=== PATIENT | male | born 1970 | race Caucasian/White ===

== ENCOUNTER 2020-11-15 13:48 | Emergency (ER) | payer OTHER ==
[2020-11-15] MEDS ORDERED: diphenhydrAMINE 50 MG/ML SDV IVPUSH ONE (13:54)
[2020-11-15] MEDS ORDERED: EPINEPHrine 1 MG/1 ML Amp IM ONE (13:54)
[2020-11-15] MEDS ORDERED: Dexamethasone 10 MG/ML SDV IVPUSH ONE (13:54)
[2020-11-15] MEDS ORDERED: Albuterol/Ipratropium 3.0-0.5 MG/3 ML Neb Soln NEB ONE (13:55)
--- NOTE | 2020-11-15 13:56 | EDM.PDOC ---
ED HPI GENERAL MEDICAL PROBLEM - General Stated Complaint: ALLERGIC REACTION Time Seen by Provider: 11/15/20 13:48 - History of Present Illness INITIAL COMMENTS - FREE TEXT/NARRATIVE: History of present illness: [] This patient is experienced a previous allergic reaction it was anaphylaxis is now having the same symptoms. He short of breath having trouble breathing wheezing. It happened about 1 hour ago. He does not know of any acute exposure. He was doing well this morning. He does have a history of COPD. He has had prior anaphylaxis wants to wasp sting and wants for unknown reason. Today he ate menudo for the first time in the long time and thinks that might have been the precipitating factor. Before 1 hour prior to arrival he was feeling fine and yesterday he was feeling fine. Review of systems: As per history of present illness and below otherwise all systems reviewed and negative. Past medical history: As per history of present illness and as reviewed below otherwise noncontributory. Surgical history: As per history of present illness and as reviewed below otherwise noncontributory. Social history: No reported history of drug or alcohol abuse. Family history: As per history of present illness and as reviewed below otherwise noncontributory. Physical exam: Constitutional - well developed, well-nourished and in no acute distress HEENT - normocephalic, no evidence of trauma - external nose and mouth normal - no mass in neck and no JVD - mucosae moist EYES - full EOM, PERRL, no icterus - no evidence of inflammation, injection, or drainage Respiratory -mild respiratory distress, equal bilateral expansion, lungs diminished breath sounds and scattered wheeze with prolonged expiratory phase of expiration. Cardiovascular - Regular Rhythm with S1 and S2 appreciated and no murmur, gallop or rub. GI - abdomen soft without distension or organomegaly - normal bowel sounds - no guard or rebound Musculoskeletal no gross deformity of long bones or joints - no tenderness, swelling or edema Neurologic - Alert and oriented times four - CN II-XII grossly intact - motor sensory and coordination symmetrically normal Psychiatric - appropriate mood and affect with normal thought content Hematologic - No petechiae or purpura - mucosa appropriate color and sclera not pale - normal nail bed color and refill Integument - no rash or evidence of trauma - normal turgor Diagnostics: [] Therapeutics: [] Impression: [] Plan: [] Definitive disposition and diagnosis as appropriate pending reevaluation and review of above. - Related Data Allergies Allergy/AdvReac Type Severity Reaction Status Date / Time bee venom protein (honey bee) Allergy Anaphylactic Verified 11/15/20 14:15 Shock Home Meds: Home Meds methylPREDNISolone [Medrol Dose Pack] 4 mg PO DAILY #21 tab 11/15/20 [Rx] ED ROS GENERAL - Review of Systems Review Of Systems: Comprehensive ROS is negative, except as noted in HPI. ED EXAM, GENERAL - Physical Exam Exam: See Below Free Text/Narrative:: My physical exam is in the HPI Course - Vital Signs Text/Narrative:: 1405 hrs. the patient's breathing better. His voice is normal. He feels better. 1552 hrs. the patient remains improved. Last Recorded V/S: Last Vital Signs Temp 37.0 C 11/15/20 14:16 Pulse 94 11/15/20 15:31 Resp 16 11/15/20 15:31 BP 120/79 11/15/20 15:31 Pulse Ox 99 11/15/20 15:31 - Orders/Labs/Meds Orders: Active Orders 24 hr Category Date Time Status RT Aerosol Therapy [RC] ASDIRECTED Care 11/15/20 13:55 Active Meds: Medications Discontinued Medications Generic Name Dose Route Start Last Admin Trade Name Deya PRN Reason Stop Dose Admin Albuterol/Ipratropium 3 ml 11/15/20 13:55 11/15/20 14:14 Albuterol/Ipratropium 3.0-0.5 Mg/3 Ml Neb Soln NEB 11/15/20 13:56 3 ml ONETIME ONE Administration Dexamethasone 10 mg 11/15/20 13:54 11/15/20 14:10 Dexamethasone 10 Mg/Ml Sdv IVPUSH 11/15/20 13:55 10 mg ONETIME ONE Administration Diphenhydramine HCl 25 mg 11/15/20 13:54 11/15/20 14:09 Diphenhydramine 50 Mg/Ml Sdv IVPUSH 11/15/20 13:55 25 mg ONETIME ONE Administration Epinephrine HCl 0.3 mg 11/15/20 13:54 11/15/20 14:09 Epinephrine 1 Mg/1 Ml Amp IM 11/15/20 13:55 0.3 mg ONETIME ONE Administration Departure - Departure Time of Disposition: 15:52 Disposition: Home, Self-Care 01 Condition: Good Clinical Impression: Anaphylaxis - Discharge Information Prescriptions: methylPREDNISolone [Medrol Dose Pack] 4 mg PO DAILY #21 tab Instructions: Anaphylactic Reaction, Adult Referrals: PCP,Not In Area [Primary Care Provider] - Additional Instructions: Take Benadryl 3 times a day for the next 3 days. Fill the prescription for steroids. You should carry an autoinjector. These are expensive and if you look up epinephrine affordable on the web search you can find organizations to try to help people who need them afford them so they can carry them for their own safety [facility] [address] [place] [id number] [id number] The following information is given to patients seen in the emergency department who are being discharged to home. This information is to outline your options for follow-up care. We provide all patients seen in our emergency department with a follow-up referral. The need for follow-up, as well as the timing and circumstances, are variable depending upon the specifics of your emergency department visit. If you don't have a primary care physician on staff, we will provide you with a referral. We always advise you to contact your personal physician following an emergency department visit to inform them of the circumstance of the visit and for follow-up with them and/or the need for any referrals to a consulting specialist. The emergency department will also refer you to a specialist when appropriate. This referral assures that you have the opportunity for follow-up care with a specialist. All of these measure are taken in an effort to provide you with optimal care, which includes your follow-up. Under all circumstances we always encourage you to contact your private physician who remains a resource for coordinating your care. When calling for follow-up care, please make the office aware that this follow-up is from your recent emergency room visit. If for any reason you are refused follow-up, please contact the [facility] Department at and asked to speak to the emergency department charge nurse. Sepsis Event Note (ED) - Focused Exam Vital Signs: Vital Signs Temp Pulse Resp BP Pulse Ox 11/15/20 15:31 94 16 120/79 99 11/15/20 14:16 37.0 C 98 17 120/79 99 11/15/20 14:15 97 18 109/76 95 - My Orders Last 24 Hours: My Active Orders 11/15/20 13:55 RT Aerosol Therapy [RC] ASDIRECTED - Assessment/Plan Last 24 Hours: My Active Orders 11/15/20 13:55 RT Aerosol Therapy [RC] ASDIRECTED
== END 2020-11-15 16:25 | disposition home or self-care (01) ==
LOC: EDBD 13:48 → MW.ED 13:48
DX: T78.2XXA Anaphylactic shock, unspecified, initial encounter (principal)
CPT/HCPCS: 96372; 96374; 96375; 99284; J0171; J1100; J1200; J7620-GY

== ENCOUNTER 2021-02-10 10:20 | Emergency (ER) | payer SELFPAY ==
[2021-02-10] MEDS ORDERED: Sodium Chloride 0.9% 10 ML Syringe FLUSH PRN (10:29)
[2021-02-10] MEDS ORDERED: Sodium Chloride 0.9% 2.5 ML Syringe FLUSH PRN (10:29)
[2021-02-10] MEDS ORDERED: Albuterol/Ipratropium 3.0-0.5 MG/3 ML Neb Soln NEB ONE (10:30)
[2021-02-10] MEDS ORDERED: methylPREDNISolone Sodium Succinate 125 MG/2 ML SDV IVPUSH ONE (10:31)
[2021-02-10] MEDS ORDERED: Ondansetron 4 MG/2 ML SDV IVPUSH ONE (10:39)
[2021-02-10 11:16] LABS: BLOOD UREA NITROGEN,BUN 21 mg/dL (7.0-18.0); CARBON DIOXIDE,CO2 24.2 mmol/L (21.0-32.0); CHLORIDE,CL 104 mmol/L (98-107); GLUCOSE RANDOM 122 mg/dL (74-106); POTASSIUM,K 4.5 mmol/L (3.5-5.1); SODIUM,NA 141 mmol/L (136-148)
--- NOTE | 2021-02-10 11:19 | CR ---
INDICATION: COPD with difficulty in breathing COMPARISON: None TECHNIQUE: PA and lateral views of the chest were acquired FINDINGS: TUBES AND LINES: None. HEART AND MEDIASTINUM: The heart size is normal. The mediastinal contour appears normal for patient age. LUNGS AND PLEURAL SPACES: Hyperinflated but otherwise unremarkable appearing lungs without acute focal finding.The pleural spaces are unremarkable. OSSEOUS STRUCTURES: Age-appropriate appearance. No acute focal finding. IMPRESSION: Hyperinflated but otherwise unremarkable appearing lungs. No acute focal finding. Dictated by Dennis Timmons MD @ 02/10/2021 11:17:22 AM (Electronically Signed)
[2021-02-10] MEDS ORDERED: Sodium Chloride 0.9% 1,000 ML IV ONE (11:59)
--- NOTE | 2021-02-10 13:07 | EDM.PDOC ---
ED HPI GENERAL MEDICAL PROBLEM - General Chief Complaint: Respiratory Problem Stated Complaint: SOB Time Seen by Provider: 02/10/21 10:26 Source of Information: Reports: Patient History Limitations: Reports: No Limitations - History of Present Illness INITIAL COMMENTS - FREE TEXT/NARRATIVE: HISTORY AND PHYSICAL: History of present illness: Patient is a 50-year-old male with a history of COPD and methamphetamine use, who presents emergency room today with concern of worsening shortness of breath x2 days. Patient states that he has had multiple COPD exacerbations and this fe els typical of his usual COPD exacerbation. Patient states that he no longer has his albuterol or medications and states that he does not have any more refills on them. Patient states that he is currently high on methamphetamine and states he does realize that this is why he is anxious and agitated and states that he does use it chronically. Patient denies fever, chills, chest pain, or cough. Denies headache, neck stiff ness, change in vision, syncope, or near syncope. Denies nausea, vomiting, abdominal pain, diarrhea, constipation, or dysuria. Has not noted any blood in urine or stool. Patient has been eating and drinking appropriately. Review of systems: As per history of present illness and below otherwise all systems reviewed and negative. Past medical history: As per history of present illness and as reviewed below otherwise noncontributory. Surgical history: As per history of present illness and as reviewed below otherwise noncontributory. Social history: See social history for further information Family history: As per history of present illness and as reviewed below otherwise noncontributory. Physical exam: General: Patient is alert, oriented, and in no acute distress. Patient sitting on exam table. Patient is tachypneic with a respiratory rate of 30 and tachycardic at 125, otherwise vitally stable and reviewed by me. Patient is anxious and fidgety. HEENT: Atraumatic, normocephalic, pupils equal and reactive bilaterally, negative for conjunctival pallor or scleral icterus, mucous membranes moist, throat clear, neck supple, nontender, trachea midline. No drooling or trismus noted. No meningeal signs. No hot potato voice noted. Lungs: Diffuse wheezing to auscultation throughout all lung steiner, breath sounds equal bilaterally, chest nontender. Patient speaking 3-4 words with breathlessness, no stridor, some use of accessory muscle use or respiratory distress. Heart: S1S2, regular rate and rhythm without overt murmur Abdomen: Soft, nondistended, nontender. Negative for masses or hepatosplenomegaly. Negative for costovertebral tenderness. Pelvis: Stable nontender. Genitourinary: Deferred. Rectal: Deferred. Skin: Intact, warm, dry. No lesions or rashes noted. Extremities: Atraumatic, negative for cords or calf pain. Neurovascular unremarkable. Neuro: Awake, alert, oriented. Cranial nerves II through XII unremarkable. Cerebellum unremarkable. Motor and sensory unremarkable throughout. Exam nonfocal. Medical Decision Making: Patient is a 50-year-old male with a history of COPD and methamphetamine use who presents emergency room today with concern of worsening shortness of breath x2 days. Upon arrival to the ED, patient is tachypneic with a respiratory rate of 30 and tachycardic at 125, he is anxious and fidgety. He does have diffuse wheezing to auscultation throughout all lung steiner and exam is otherwise unremarkable. Upon arrival to the ED, continueous duoneb initiated with dose of steroid. Following the DuoNeb, patient was reevaluated and does have improvement of his wheezing. His respiratory rate has come down to 18, and his heart rate has improved to [address] Philippe's dictation for specific EKG interpretation. Otherwise, sinus tachycardia without STEMI. CBC does show a mild leukocytosis with white blood cell count 12.09, otherwise mild derangements of CBC are unremarkable. D-dimer is within normal limits. CMP does show elevation of BUN at 21, AST and ALT mildly elevated at 74 and 74. Troponin negative. Venous blood gas shows a normal pH at 7.45. Chest x-ray shows hyperinflation otherwise unremarkable lungs. No acute focal findings. (Patient denies Covid/influenza testing) Upon reevaluation of patient, he now remains vitally stable and comfortable throughout stay in ED. Patient has not had access to his COPD medications. So will give patient nebulizers, his albuterol inhaler, placed on a steroid pack, and azithromycin for COPD exacerbation. Strict return precautions thoroughly discussed with patient. Discussed importance for follow-up with close follow-up with a primary care provider. Voices understanding and is agreeable to plan of care. Denies any further questions or concerns at this time. Diagnostics: EKG, CBC, CMP, D-dimer, chest x-ray, troponin Therapeutics: DuoNeb x3, Solu-Medrol Prescription: Albuterol, DuoNeb, prednisone, azithromycin Impression: COPD exacerbation Plan: 1. Take medications as prescribed. Your prescription has been sent to [place] [facility]. 2. Follow-up closely with your primary care provider in the next 2 to 3 days as discussed. Return to the ED as needed and as discussed. Definitive disposition and diagnosis as appropriate pending reevaluation and review of above. - Related Data Allergies Allergy/AdvReac Type Severity Reaction Status Date / Time bee venom protein (honey bee) Allergy Anaphylactic Verified 02/10/21 10:23 Shock Home Meds: Home Meds Albuterol Sulfate [Albuterol Sulfate Hfa] 2 puff PO DAILY 02/10/21 [History] Albuterol Sulfate [Proair Hfa] 8.5 gm IH Q8HR PRN #1 hfa.[email or web address] 02/10/21 [Rx] Albuterol/Ipratropium [DuoNeb 3.0-0.5 MG/3 ML] 3 ml .XX TID PRN #1 box 02/10/21 [Rx] Azithromycin 250 mg PO DAILY 5 Days #6 tablet 02/10/21 [Rx] Fluticasone/Umeclidin/Vilanter [Trelegy Ellipta 100-62.5-25] 1 puff PO BID 02/10/21 [History] predniSONE [Prednisone] 20 mg PO DAILY 5 Days #5 tablet 02/10/21 [Rx] Past Medical History - Past Health History Medical/Surgical History: Denies Medical/Surgical History Respiratory History: Reports: COPD - Infectious Disease History Infectious Disease History: Reports: None Social & Family History - Family History Family Medical History: No Pertinent Family History - Caffeine Use Caffeine Use: Reports: Coffee - Recreational Drug Use Recreational Drug Type: Reports: Methamphetamine Recreational Drug Use Frequency: Binges ED ROS GENERAL - Review of Systems Review Of Systems: Comprehensive ROS is negative, except as noted in HPI. ED EXAM, GENERAL - Physical Exam Exam: See Below (see dictation) Course - Vital Signs Last Recorded V/S: Last Vital Signs Temp 97.9 F 02/10/21 13:21 Pulse 98 02/10/21 13:21 Resp 18 02/10/21 13:21 BP 138/73 02/10/21 13:21 Pulse Ox 94 L 02/10/21 13:21 - Orders/Labs/Meds Orders: Active Orders 24 hr Category Date Time Status Saline Lock Insert [OM.PC] Stat Oth 02/10/21 10:29 Ordered Labs: Laboratory Tests 02/10/21 02/10/21 02/10/21 Range/Units 10:30 10:30 10:30 WBC 12.09 H (4.0-11.0) K/uL RBC 5.33 (4.50-5.90) M/uL Hgb 16.7 (13.0-17.0) g/dL Hct 48.4 (38.0-50.0) % MCV 90.8 (80.0-98.0) fL MCH 31.3 (27.0-32.0) pg MCHC 34.5 (31.0-37.0) g/dL RDW Std Deviation 46.3 (28.0-62.0) fl RDW Coeff of Deanna 14 (11.0-15.0) % Plt Count 290 (150-400) K/uL MPV 9.40 (7.40-12.00) fL Neut % (Auto) 53.2 (48.0-80.0) % Lymph % (Auto) 32.1 (16.0-40.0) % [place] % (Auto) 10.9 (0.0-15.0) % Eos % (Auto) 3.6 (0.0-7.0) % Baso % (Auto) 0.2 (0.0-1.5) % Neut # (Auto) 6.4 H (1.4-5.7) K/uL Lymph # (Auto) 3.9 H (0.6-2.4) K/uL [place] # (Auto) 1.3 H (0.0-0.8) K/uL Eos # (Auto) 0.4 (0.0-0.7) K/uL Baso # (Auto) 0.0 (0.0-0.1) K/uL Nucleated RBC % 0.0 /100WBC Nucleated RBCs # 0 K/uL D-Dimer, Quantitative 0.47 (0.0-0.50) mg/L FEU VBG pH (7.31-7.41) VBG pCO2 (41-51) mmHG VBG pO2 mmHG VBG HCO3 (23-28) mEq/L VBG Total CO2 (24-29) mmol/L VBG Base Excess (-2.0-3.0) Sodium 141 (136-148) mmol/L Potassium 4.5 (3.5-5.1) mmol/L Chloride 104 (98-107) mmol/L Carbon Dioxide 24.2 (21.0-32.0) mmol/L BUN 21 H (7.0-18.0) mg/dL Creatinine 1.2 (0.8-1.3) mg/dL Est Cr Clr Drug Dosing 72.01 mL/min Estimated GFR (MDRD) > 60.0 ml/min Glucose 122 H (74-106) mg/dL Calcium 9.6 (8.5-10.1) mg/dL Total Bilirubin 0.9 (0.2-1.0) mg/dL AST 74 H (15-37) IU/L ALT 74 H (14-63) IU/L Alkaline Phosphatase 76 (46-116) U/L Troponin I < 0.050 (0.000-0.056) ng/mL Total Protein 8.0 (6.4-8.2) g/dL Albumin 4.2 (3.4-5.0) g/dL Globulin 3.8 (2.6-4.0) g/dL Albumin/Globulin Ratio 1.1 (0.9-1.6) 02/10/21 Range/Units 10:30 WBC (4.0-11.0) K/uL RBC (4.50-5.90) M/uL Hgb (13.0-17.0) g/dL Hct (38.0-50.0) % MCV (80.0-98.0) fL MCH (27.0-32.0) pg MCHC (31.0-37.0) g/dL RDW Std Deviation (28.0-62.0) fl RDW Coeff of Deanna (11.0-15.0) % Plt Count (150-400) K/uL MPV (7.40-12.00) fL Neut % (Auto) (48.0-80.0) % Lymph % (Auto) (16.0-40.0) % [place] % (Auto) (0.0-15.0) % Eos % (Auto) (0.0-7.0) % Baso % (Auto) (0.0-1.5) % Neut # (Auto) (1.4-5.7) K/uL Lymph # (Auto) (0.6-2.4) K/uL [place] # (Auto) (0.0-0.8) K/uL Eos # (Auto) (0.0-0.7) K/uL Baso # (Auto) (0.0-0.1) K/uL Nucleated RBC % /100WBC Nucleated RBCs # K/uL D-Dimer, Quantitative (0.0-0.50) mg/L FEU VBG pH 7.45 H (7.31-7.41) VBG pCO2 37 L (41-51) mmHG VBG pO2 36 mmHG VBG HCO3 26 (23-28) mEq/L VBG Total CO2 22 L (24-29) mmol/L VBG Base Excess 1.9 (-2.0-3.0) Sodium (136-148) mmol/L Potassium (3.5-5.1) mmol/L Chloride (98-107) mmol/L Carbon Dioxide (21.0-32.0) mmol/L BUN (7.0-18.0) mg/dL Creatinine (0.8-1.3) mg/dL Est Cr Clr Drug Dosing mL/min Estimated GFR (MDRD) ml/min Glucose (74-106) mg/dL Calcium (8.5-10.1) mg/dL Total Bilirubin (0.2-1.0) mg/dL AST (15-37) IU/L ALT (14-63) IU/L Alkaline Phosphatase (46-116) U/L Troponin I (0.000-0.056) ng/mL Total Protein (6.4-8.2) g/dL Albumin (3.4-5.0) g/dL Globulin (2.6-4.0) g/dL Albumin/Globulin Ratio (0.9-1.6) Meds: Medications Discontinued Medications Generic Name Dose Route Start Last Admin Trade Name Freq PRN Reason Stop Dose Admin Albuterol/Ipratropium 9 ml 02/10/21 10:30 02/10/21 10:34 Albuterol/Ipratropium 3.0-0.5 Mg/3 Ml Neb Soln NEB 02/10/21 10:31 9 ml ONETIME ONE Administration Sodium Chloride 1,000 mls @ 999 mls/hr 02/10/21 11:59 02/10/21 12:05 Normal Saline IV 02/10/21 12:59 999 mls/hr STAT ONE Administration Methylprednisolone Sodium Succinate 125 mg 02/10/21 10:31 02/10/21 10:34 Methylprednisolone Sodium Succinate 125 Mg/2 Ml Sdv IVPUSH 02/10/21 10:32 125 mg ONETIME ONE Administration Ondansetron HCl 4 mg 02/10/21 10:39 02/10/21 10:41 Ondansetron 4 Mg/2 Ml Sdv IVPUSH 02/10/21 10:40 4 mg ONETIME ONE Administration Sodium Chloride 2.5 ml 02/10/21 10:29 02/10/21 10:42 Sodium Chloride 0.9% 2.5 Ml Syringe FLUSH 2.5 ml ASDIRECTED PRN Administration Keep Vein Open Sodium Chloride 10 ml 02/10/21 10:29 02/10/21 10:42 Sodium Chloride 0.9% 10 Ml Syringe FLUSH 10 ml ASDIRECTED PRN Administration Keep Vein Open Departure - Departure Time of Disposition: 13:04 Disposition: Home, Self-Care 01 Clinical Impression: COPD exacerbation - Discharge Information Prescriptions: Azithromycin 250 mg PO DAILY 5 Days #6 tablet Albuterol/Ipratropium [DuoNeb 3.0-0.5 MG/3 ML] 3 ml .XX TID PRN #1 box PRN Reason: Wheezing predniSONE [Prednisone] 20 mg PO DAILY 5 Days #5 tablet Albuterol Sulfate [Proair Hfa] 8.5 gm IH Q8HR PRN #1 hfa.aer.ad PRN Reason: Cough Instructions: Chronic Obstructive Pulmonary Disease Exacerbation, [id number] Referrals: PCP,None [Primary Care Provider] - Forms: ED Department Discharge Additional Instructions: The following information is given to patients seen in the emergency department who are being discharged to home. This information is to outline your options for follow-up care. We provide all patients seen in our emergency department with a follow-up referral. The need for follow-up, as well as the timing and circumstances, are variable depending upon the specifics of your emergency department visit. If you don't have a primary care physician on staff, we will provide you with a referral. We always advise you to contact your personal physician following an emergency department visit to inform them of the circumstance of the visit and for follow-up with them and/or the need for any referrals to a consulting specialist. The emergency department will also refer you to a specialist when appropriate. This referral assures that you have the opportunity for follow-up care with a specialist. All of these measure are taken in an effort to provide you with optimal care, which includes your follow-up. Under all circumstances we always encourage you to contact your private physician who remains a resource for coordinating your care. When calling for follow-up care, please make the office aware that this follow-up is from your recent emergency room visit. If for any reason you are refused follow-up, please contact the [facility] at and asked to speak to the emergency department charge nurse. [facility] [address] [place] [id number] [place] [address] 1. Take medications as prescribed. Your prescription has been sent to [place] [facility]. 2. Follow-up closely with your primary care provider in the next 2 to 3 days as discussed. Return to the ED as needed and as discussed. Sepsis Event Note (ED) - Evaluation Sepsis Screening Result: Possible Sepsis Risk - Focused Exam Vital Signs: Vital Signs Temp Pulse Resp BP Pulse Ox 02/10/21 13:21 97.9 F 98 18 138/73 94 L 02/10/21 12:24 100 140/77 91 L 02/10/21 11:24 115 H 114/90 92 L 02/10/21 10:23 97.0 F 125 H 30 H 127/95 H 98 - My Orders Last 24 Hours: My Active Orders 02/10/21 10:29 Saline Lock Insert [OM.PC] Stat - Assessment/Plan Last 24 Hours: My Active Orders 02/10/21 10:29 Saline Lock Insert [OM.PC] Stat
--- NOTE | 2021-02-11 07:55 | PCM.EKG ---
#1 Interpretation EKG Date: 02/10/21 Time: 10:56 Rhythm: NSR Rate (Beats/Min): 97 Gilbert: Normal P-Wave: Present QRS: Normal ST-T: Normal QT: Normal Comparison: NA - No Prior EKG EKG Interpretation Comments: Sinus Rhythm
== END 2021-02-10 13:22 | disposition home or self-care (01) ==
LOC: MW.ED 10:20
DX: J44.1 Chronic obstructive pulmonary disease with (acute) exacerbation (principal); Z91.030 Bee allergy status
CPT/HCPCS: 36415; 71045; 80053; 82803; 84484; 85025; 85379; 93005; 94640; 96374; 96375; 99285; J2405; J2930; J7030; J7620-GY

== ENCOUNTER 2021-05-01 16:10 | Emergency (ER) | payer SELFPAY ==
[~2021-05-01 16:10] MED LIST: Ofloxacin 0.3% Ophth Soln 5 ML Bottle EYEBOTH ONE
[2021-05-01] MEDS ORDERED: diphenhydrAMINE 50 MG/ML SDV IVPUSH ONE (16:11)
[2021-05-01] MEDS ORDERED: methylPREDNISolone Sodium Succinate 125 MG/2 ML SDV IVPUSH ONE (16:11)
[2021-05-01] MEDS ORDERED: EPINEPHrine 1 MG/ML SDV IM ONE (16:13)
[2021-05-01] MEDS ORDERED: Tetracaine HCl/PF 0.5% 4 ML Bottle EYEBOTH ONE (16:14)
[2021-05-01] MEDS ORDERED: Fluorescein 1 MG Ophth Strip EYEBOTH ONE (16:15)
[2021-05-01] MEDS ORDERED: LORazepam 2 MG/ML SDV IVPUSH ONE (16:31)
[2021-05-01 17:22] LABS: BLOOD UREA NITROGEN,BUN 20 mg/dL (7.0-18.0); CARBON DIOXIDE,CO2 24.4 mmol/L (21.0-32.0); CHLORIDE,CL 105 mmol/L (98-107); GLUCOSE RANDOM 93 mg/dL (74-106); POTASSIUM,K 3.9 mmol/L (3.5-5.1); SODIUM,NA 144 mmol/L (136-148)
[2021-05-02] MEDS ORDERED: Fluorescein 1 MG Ophth Strip EYERT ONE (03:15)
[2021-05-02] MEDS ORDERED: Tetracaine HCl/PF 0.5% 4 ML Bottle EYEBOTH STA (03:15)
[2021-05-02] MEDS ORDERED: Polymyxin B/Trimethoprim 10 ML Bottle EYERT ONE (04:00)
== END 2021-05-02 08:40 | disposition home or self-care (01) ==
LOC: MERGE 16:10 → MW.ED 16:10
DX: S00.03XA Contusion of scalp, initial encounter (principal); T43.625A Adverse effect of amphetamines, initial encounter; R41.82 Altered mental status, unspecified; Z20.822 Contact with and (suspected) exposure to COVID-19
CPT/HCPCS: 36415; 70450; 71045; 72125; 80053; 80305; 80307; 81001; 84484; 85025; 87635; 96372; 96374; 96375; 99285; A9270; J0171; J1200; J2060; J2930; 93010; 99284; U0002

== ENCOUNTER 2021-05-01 16:19 | Emergency (ER) | payer SELFPAY | END 2021-05-01 18:32 | disposition left against medical advice (07) | LOC: MW.ED 16:19 | DX: Z53.21 Procedure and treatment not carried out due to patient leaving prior to being seen by health care provider (principal) | CPT/HCPCS: 93005 ==

== ENCOUNTER 2021-05-18 20:24 | Emergency (ER) | payer SELFPAY ==
[2021-05-18] MEDS ORDERED: predniSONE 20 MG Tab PO ONE (21:01)
[2021-05-18] MEDS ORDERED: Famotidine 20 MG Tab PO ONE (21:02)
[2021-05-18] MEDS ORDERED: hydrOXYzine HCl 25 MG Tab PO STA (21:04)
[2021-05-18] MEDS ORDERED: Sodium Chloride 0.9% 1,000 ML IV ONE (22:11)
[2021-05-18] MEDS ORDERED: Ondansetron 4 MG/2 ML SDV IVPUSH ONE (22:11)
== END 2021-05-18 22:45 | disposition home or self-care (01) ==
LOC: MW.ED 20:24
DX: T78.40XA Allergy, unspecified, initial encounter (principal); J44.9 Chronic obstructive pulmonary disease, unspecified; Z91.030 Bee allergy status
CPT/HCPCS: 96374; 99283; A9270; J2405; J7030; 99282

== ENCOUNTER 2021-05-21 18:29 | Emergency (ER) | payer SELFPAY ==
[2021-05-21] MEDS ORDERED: methylPREDNISolone Sodium Succinate 125 MG/2 ML SDV IVPUSH ONE (18:41)
[2021-05-21] MEDS ORDERED: Albuterol/Ipratropium 3.0-0.5 MG/3 ML Neb Soln NEB ONE (18:41)
[2021-05-21 19:27] LABS: BLOOD UREA NITROGEN,BUN 20 mg/dL (7.0-18.0); CARBON DIOXIDE,CO2 26.5 mmol/L (21.0-32.0); CHLORIDE,CL 106 mmol/L (98-107); GLUCOSE RANDOM 85 mg/dL (74-106); POTASSIUM,K 4.4 mmol/L (3.5-5.1); SODIUM,NA 140 mmol/L (136-148)
== END 2021-05-21 20:08 | disposition home or self-care (01) ==
LOC: MW.ED 18:29
DX: J44.1 Chronic obstructive pulmonary disease with (acute) exacerbation (principal); Z91.030 Bee allergy status
CPT/HCPCS: 36415; 71046; 80053; 84484; 85025; 93005; 96374; 99285; J2930; 93010; 99283; J7620-GY